=== PATIENT | female | born 1975 | race Caucasian/White ===

== ENCOUNTER 2019-02-24 20:03 | Emergency (ER) | payer MEDICARE, MEDICAID ==
[~2019-02-24] VITALS: Ht 157.5 cm; Wt 92.7 kg
[~2019-02-24 20:03] MED LIST: DIPH25CA2 PO; DOCU-269 PO; FLUO-125 PO; HALO5TAB23; METF-445 PO; OMEP20 PO; QUET400T PO; ROSI4TAB28 PO; TOPI100T37
[2019-02-24] MEDS ORDERED: DIVA-78 PO (20:38)
[2019-02-24] MEDS ORDERED: CLOZ100 PO (20:38)
[2019-02-24] MEDS ORDERED: FAMO20 PO (20:38)
[2019-02-24] MEDS ORDERED: BENZ1TAB10 PO (20:38)
[2019-02-24] MEDS ORDERED: LEVO75 PO (20:38)
[2019-02-24] MEDS ORDERED: PALI819S IM (20:38)
[2019-02-24] MEDS ORDERED: LIDOCAINE/PF 1% 2 ML VIAL IM ONE (21:00)
[2019-02-24] MEDS ORDERED: DiphenhydrAMINE HCL 25 MG CAPSULE PO ONE (21:00)
[2019-02-24] MEDS ORDERED: CefTRIAXone SODIUM 1 GM/VIAL IM ONE (21:00)
[2019-02-24 21:30] VITALS: BP 113/69
[2019-02-24 22:14] LABS: GLUCOSE,POINT OF CARE 108 MG/DL (70-110)
== END 2019-02-24 23:30 | disposition home or self-care (01) ==
LOC: EMS 20:04
DX: K13.0 Diseases of lips (principal); J44.9 Chronic obstructive pulmonary disease, unspecified; E11.9 Type 2 diabetes mellitus without complications; E78.00 Pure hypercholesterolemia, unspecified; E03.9 Hypothyroidism, unspecified; F20.9 Schizophrenia, unspecified; Z79.84 Long term (current) use of oral hypoglycemic drugs
CPT/HCPCS: 82962; 96372; 99283; J0696; J3490